=== PATIENT | female | born 1940 | race Caucasian/White ===

== ENCOUNTER 2017-04-21 10:15 | Emergency (ER) | payer OTHER ==
[2017-04-21] MEDS ORDERED: KETOROLAC 30 MG/1 ML SDV IVP ONE (10:37)
[2017-04-21] MEDS ORDERED: DEXAMETHASONE 4 MG/ML VIAL IVP ONE (10:38)
--- NOTE | 2017-04-21 10:57 | EDPHY ---
H & P Stated Complaint: 3 days mid back pain/hx pinched nerve Time Seen by Provider: 04/21/17 10:53 HPI/ROS: HPI: This is a 77-year-old female who presents with Chief Complaint: Mid to low back pain Location: Mid to low Quality: Pain Duration: 3-4 days Signs and Symptoms: no radiation, no numbness, no weakness, no tingling, no incontinence, no decreased range of motion, no swelling, + pain , no injury Timing: Intermittent episodes Severity: [id number] Context: Patient complains of gradual onset of mid to lower back pain that is nonradiating in nature, for the last 3 days that worsened last night to the point that it was constant and approximately 6/10 and only transiently relieved by Advil. She denies any coughing, fevers, Trauma, injury, radiation of pain. 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 She only took Advil at that time. She denies having an actual injury or trauma but she come had sat in a chair for long periods of time and they believe that to be the exacerbating factor. Patient is ambulatory without deficits. She denies chest pain, shortness of breath palpitations, wheezing. Patient denies any urinary symptoms. Modifying Factors: Advil with transient relief Comment: ROS: see HPI Constitutional: No fever, no chills, no weight loss Eyes: No blurred vision Respiratory: No shortness of breath, no cough Cardiovascular: No chest pain Gastrointestinal: No nausea, no vomiting no diarrhea Genitourinary: No dysuria Extremities: No myalgias Neurologic: No weakness, no numbness Skin: No rashes Hematologic: No bruising, no bleeding MEDICAL/SURGICAL/SOCIAL HISTORY: Medical history: Hypertension Surgical history: Denies Social history: . CONSTITUTIONAL: Petite pleasant elderly white female, awake and alert, no obvious distress HEENT: Atraumatic and normocephalic. NECK: supple, no midline tenderness, flexion 45 degrees, extension 45 degrees, right and left lateral flexion 45 degrees. No meningismus. Cardiovascular: Normal S1/S2, regular rate, regular rhythm, without murmur rub or gallop. PULMONARY/CHEST: Symmetrical and nontender. no crepitus. Clear to auscultation bilaterally. Good air movement. No accessory muscle usage. ABDOMEN: Soft, nondistended, nontender, no ecchymosis. PELVIC: no pain with rocking; bilateral hips flexion 125 degrees, extension 30 degrees, no pain internal rotation and no pain external rotation. BACK: No midline tenderness, no thoracic or lumbar reproducible paraspinous muscle tenderness, no paraspinous spasm, deep tendon reflexes 2/2, no pain with straight leg raise. Good range of motion of flexion, extension, bilateral rotation. EXTREMITIES: 2/2 pulses, no deformities, no clubbing, no cyanosis or edema. NEUROLOGICAL: no focal neuro deficits. GCS 15. Light touch sensation intact. SKIN: Warm and dry, no erythema. no rash. Good capillary refill. Source: Patient, Family () - Personal History Current Tetanus/Diphtheria Vaccine: Yes - Medical/Surgical History Hx Asthma: No Hx Chronic Respiratory Disease: No Hx Diabetes: No Hx Cardiac Disease: No Hx Renal Disease: No Hx Cirrhosis: No Hx Alcoholism: No Hx HIV/AIDS: No Hx Splenectomy or Spleen Trauma: No Other PMH: pinched nerve r sacral area - Social History Smoking Status: Never smoked Constitutional: Initial Vital Signs Temperature (C) 36.7 C 04/21/17 10:19 Heart Rate 76 04/21/17 10:19 Respiratory Rate 17 04/21/17 10:19 Blood Pressure 150/73 H 04/21/17 10:19 O2 Sat (%) 94 04/21/17 10:19 O2 Delivery Mode Room Air Allergies/Adverse Reactions: Sulfa (Sulfonamide Antibiotics) Allergy (Verified 04/21/17 10:17) Home Medications: Medication Instructions Recorded Amlodipine Besylate 04/21/17 Benicar 04/21/17 CEPHALEXIN 04/21/17 Cyclobenzaprine [Flexeril 10 MG 10 mg PO TID PRN #12 tab 04/21/17 (*)] methylPREDNISolone [Medrol Dose 1 each PO AD #1 ea 04/21/17 Adal] Medical Decision Making - Diagnostics Imaging Results: Imaging Impressions Lumbar Spine X-Ray 04/21/17 10:37 Impression: Multilevel degenerative changes throughout the cervical and thoracic spine, as above detailed, with the appearance of the lower thoracic spine similar to a previous study of 2011. LUMBAR SPINE (AP and Lateral Upright Views, at 10:31 AM): Again, the bones are demineralized. The vertebral body heights are maintained. There is 5.5 mm of L4 anterolisthesis above L5, with degenerative facet hypertrophy seen from L3-L4 through L5-S1. There is advanced degenerative change of the visualized lower thoracic spine, and there is multilevel degenerative disk space narrowing as well. The interpediculate distances are appropriate. There is faint mural calcification of the abdominal aorta. There are some mild degenerative changes of the SI joints. Impression: Bone demineralization with degenerative features as above-detailed, but no acute osseous abnormality. Thoracic Spine X-Ray 04/21/17 10:37 Impression: Multilevel degenerative changes throughout the cervical and thoracic spine, as above detailed, with the appearance of the lower thoracic spine similar to a previous study of 2012. LUMBAR SPINE (AP and Lateral Upright Views, at 10:31 AM): Again, the bones are demineralized. The vertebral body heights are maintained. There is 5.5 mm of L4 anterolisthesis above L5, with degenerative facet hypertrophy seen from L3-L4 through L5-S1. There is advanced degenerative change of the visualized lower thoracic spine, and there is multilevel degenerative disk space narrowing as well. The interpediculate distances are appropriate. There is faint mural calcification of the abdominal aorta. There are some mild degenerative changes of the SI joints. Impression: Bone demineralization with degenerative features as above-detailed, but no acute osseous abnormality. ED Course/Re-evaluation: Thoracic x-ray, lumbar x-ray, IV medications ordered Patient given IV Decadron and IV Toradol with moderate relief of pain No signs of neurovascular compromise/tenting of skin/compartment syndrome/ extremities and joints examined above and below area of concern and are neurovascularly intact. Thoracic and lumbar x-ray imaging reviewed via PACs and show [id number] degenerative changes. 1125: Reassessed patient who advises that pain is completely resolved. She has a follow-up appointment already scheduled with a primary care provider. We discussed treatment options and patient wishes to continue with her Advil and has agreed to Medrol Dosepak as well as Flexeril p.r.n. This patient was seen with secondary supervising physician. Patient's presentation, labs/imaging, treatment and plan of care were reviewed with secondary supervising physician. Differential Diagnosis: Back pain including but not limited to muscular pain, herniated disc, spine fracture, intra-abdominal causes and urinary tract infection. - Data Points Medications Given: Discontinued Medications Dexamethasone (Decadron Injection) 8 mg IVP EDNOW ONE Stop: 04/21/17 10:39 Last Admin: 04/21/17 10:51 Dose: 8 mg Ketorolac Tromethamine (Toradol) 30 mg IVP EDNOW ONE Stop: 04/21/17 10:38 Last Admin: 04/21/17 10:49 Dose: 30 mg Departure - Departure Disposition: Home, Routine, Self-Care Clinical Impression: Thoracic back pain Qualifiers: Chronicity: acute Back pain laterality: midline Qualified Code(s): M54.6 - Pain in thoracic spine Degenerative disc disease Qualifiers: Spinal region: thoracolumbar Qualified Code(s): M51.35 - Other intervertebral disc degeneration, thoracolumbar region Condition: Good Instructions: Back Pain (ED) Additional Instructions: X-rays today show multilevel moderate degenerative changes. Please keep your follow-up appointment with your primary care provider tomorrow. Start Medrol Dosepak and take Flexeril as needed for spasms. Continue to take Advil every hours as needed for pain. If symptoms continue to persist or worsen, it is recommended that you obtain an MRI of your spine outpatient as well as follow-up with Neurosurgery within 1 week. Referrals: Liliane Urbina MD [Primary Care Provider] - 04/22/17 Deloris Holm DO [Doctor of Osteopathy] - As per Instructions Prescriptions: Cyclobenzaprine [Flexeril 10 MG (*)] 10 mg PO TID PRN #12 tab PRN Reason: Spasms methylPREDNISolone [Medrol Dose Adal] 1 each PO AD #1 ea
[2017-04-21 12:00] VITALS: BP 120/61; PULSE 68; RESP 18; TEMP 98.4; O2SAT 92
== END 2017-04-21 12:00 | disposition home or self-care (01) ==
DX: M51.35 Other intervertebral disc degeneration, thoracolumbar region (principal); I10 Essential (primary) hypertension
CPT/HCPCS: 72070; 72100; 96374; 96375; 99284; J1100; J1885